=== PATIENT | male | born 2000 | race Caucasian/White ===

== ENCOUNTER 2020-11-25 10:35 | Emergency (ER) | payer OTHER ==
[2020-11-25 11:19] LABS: BASOPHIL 0.6 % (0-2); HCT 42.6 % (42.0-52.0); LYMPHOCYTE 35.5 % (15-48); MCH 30.4 pg (25.0-31.0); MCHC 35.2 g/dL (32.0-36.0); MCV 86.2 fL (78.0-100.0); MONOCYTE 10.8 % (0-12); MPV 9.4 fL (6.0-9.5); NEUTROPHIL 51.7 % (41-80); NRBC 0; PLT 219 K/uL (150-400); RBC 4.94 M/uL (4.70-6.00); RDW 13.2 % (11.5-14.0)
[2020-11-25 12:10] LABS: ALBUMIN 4.8 g/dL (3.4-5.0); CREATININE 1.19 mg/dL (0.67-1.17); GLOBULIN (CALCULATION) 3.6 g/dL; POTASSIUM 3.6 mmol/L (3.5-5.1); TOTAL PROTEIN 8.4 g/dL (6.4-8.2)
[2020-11-25 12:27] LABS: BILIRUBIN NEGATIVE (NEGATIVE); BLOOD NEGATIVE Ery/uL (NEGATIVE); CLARITY CLEAR (CLEAR); COLOR YELLOW (YELLOW); GLUCOSE (U) NORMAL (NORMAL); LEUKOCYTES NEGATIVE Leu/uL (NEGATIVE); NITRITE NEGATIVE (NEGATIVE); PROTEIN NEGATIVE (NEGATIVE); SPECIFIC GRAVITY 1.015 (1.001-1.030); UROBILINOGEN 0.2 mg/dL (0.2-1.0); pH 6.5 (5.0-9.0)
[2020-11-25 12:37] LABS: BARBITURATES NEGATIVE (NEGATIVE); ECSTASY (MDMA) NEGATIVE (NEGATIVE); MARIJUANA (THC) POSITIVE (NEGATIVE); METHADONE NEGATIVE (NEGATIVE); OPIATES NEGATIVE (NEGATIVE)
[2020-11-25 12:38] LABS: AMPHETAMINES POSITIVE (NEGATIVE); OXYCODONE NEGATIVE (NEGATIVE)
[2020-11-25] MEDS ORDERED: ONDANSETRON ODT4 MG PO ×2 (13:03→13:04)
[2020-11-25] MEDS ORDERED: TRAMADOL HCL50 MG PO ×2 (13:03→13:04)
== END 2020-11-25 13:15 | disposition home or self-care (01) ==
LOC: EDBD 10:35 → FER 10:35
PROVIDERS: Emergency Medicine
DX: R10.84 Generalized abdominal pain (principal); F17.290 Nicotine dependence, other tobacco product, uncomplicated; F31.9 Bipolar disorder, unspecified; F90.9 Attention-deficit hyperactivity disorder, unspecified type; Z79.899 Other long term (current) drug therapy; Z87.19 Personal history of other diseases of the digestive system; Z20.822 Contact with and (suspected) exposure to COVID-19
CPT/HCPCS: 36415; 80053; 80305; 81003; 82150; 83690; 85025; J0500; J1885; J2060; U0002